=== PATIENT | female | born 1975 | race Caucasian/White ===

== ENCOUNTER 2019-10-25 12:16 | Emergency (ER) | payer BC, MEDICAID ==
[2019-10-25 13:22] VITALS: BP 114/75
[2019-10-25] MEDS ORDERED: DOXYcycline CAP(*) 100 MG PO ONE (14:00)
--- NOTE | 2019-10-25 14:00 | UC ---
General HPI - HPI Summary HPI Summary: patient found a tick on her abdomen may have been there for up to 3 days---tick removed by patient [employer] intact and alive-- - History of Current Complaint Chief Complaint: [place] Stated Complaint: TICK BITE Time Seen by Provider: 10/25/19 13:40 Hx Obtained From: Patient Hx Last Menstrual Period: recent , and delivery Onset/Duration: Sudden Onset, Lasting Days - 3, Still Present Timing: Constant Pain Intensity: 0 Associated Signs & Symptoms: Positive: Other - dime size erythema around tick removal site - Allergy/Home Medications Allergies/Adverse Reactions: Allergies Allergy/AdvReac Type Severity Reaction Status Date / Time moxifloxacin [From Avelox] Allergy Unknown Verified 10/25/19 13:16 Reaction Details Home Medications: Home Medications Multivitamin [Multivitamins] 1 tab PO DAILY 10/25/19 [History Confirmed 10/25/19 ] PMH/Surg Hx/FS Hx/Imm Hx Previously Healthy: Yes - Surgical History Surgical History: Yes Surgery Procedure, Year, and Place: tonsilectomy - Family History Known Family History: Positive: Cardiac Disease - father had a "heart incident" - Social History Occupation: Unemployed Lives: With Family Alcohol Use: Occasionally Substance Use Type: None Smoking Status (MU): Former Smoker Review of Systems All Other Systems Reviewed And Are Negative: Yes Constitutional: Positive: Negative Skin: Positive: Other - dime size erythema around site of Tick Bite Eyes: Positive: Negative ENT: Positive: Negative Respiratory: Positive: Negative Cardiovascular: Positive: Negative Gastrointestinal: Positive: Negative Genitourinary: Positive: Negative Motor: Positive: Negative Neurovascular: Positive: Negative Musculoskeletal: Positive: Negative Neurological/Mental Status: Positive: Negative Psychological: Positive: Negative Is Patient Immunocompromised?: No Physical Exam Triage Information Reviewed: Yes Appearance: Well-Appearing, No Pain Distress, Well-Nourished Vital Signs: Initial Vital Signs Temp 97.8 F 10/25/19 13:21 Pulse 70 10/25/19 13:21 Resp 18 10/25/19 13:21 BP 114/75 10/25/19 13:21 Pulse Ox 97 10/25/19 13:21 Vital Signs Reviewed: Yes Eye Exam: Normal Eyes: Positive: Conjunctiva Clear ENT Exam: Normal ENT: Positive: Normal ENT inspection, Hearing grossly normal. Negative: Trismus , Muffled voice, Hoarse voice Dental Exam: Normal Neck exam: Normal Neck: Positive: Supple, Nontender, No Lymphadenopathy Respiratory Exam: Normal Respiratory: Positive: Chest non-tender, No respiratory distress, No accessory muscle use Cardiovascular Exam: Normal Cardiovascular: Positive: RRR, Pulses Normal, Brisk Capillary Refill Musculoskeletal Exam: Normal Musculoskeletal: Positive: Strength Intact, ROM Intact, No Edema Neurological Exam: Normal Neurological: Positive: Alert, Muscle Tone Normal Psychological Exam: Normal Skin: Positive: Other - Dime size erythema on lower abdomen--(not a bulls eye rash) Course/Dx - Course Course Of Treatment: reviewed Up-to -date. Lactmed and discussed with Peds MD Dr. Lyles at [facility] ---all report a 1 time dose of doxycycline being safe however if she is concerned pump and dump for 24 hours would be fine as well (she has breast milk in the freezer) ---education regarding Lyme provided patient verbalizes understanding and is grateful for the assistance--- - Diagnoses Provider Diagnosis: Tick bite of abdominal wall, Risk of exposure to Lyme disease, Breast feeding status of mother Discharge ED - Sign-Out/Discharge Documenting (check all that apply): Patient Departure All imaging exams completed and their final reports reviewed: No Studies - Discharge Plan Condition: Stable Disposition: HOME Patient Education Materials: Lyme Disease (ED), Tick Bite (ED) Referrals: Kim Patel MD [Primary Care Provider] - If Needed - Billing Disposition and Condition Condition: STABLE Disposition: Home
== END 2019-10-25 14:21 | disposition home or self-care (01) ==
LOC: UCEAST 12:16
DX: S30.861A Insect bite (nonvenomous) of abdominal wall, initial encounter (principal); W57.XXXA Bitten or stung by nonvenomous insect and other nonvenomous arthropods, initial encounter; Y92.9 Unspecified place or not applicable; Z88.1 Allergy status to other antibiotic agents; Z87.891 Personal history of nicotine dependence
CPT/HCPCS: 99212; A9270-GY; G0463